=== PATIENT | female | born 2000 | race African-American/Black ===

== ENCOUNTER 2020-02-24 14:12 | Day surgery (SDC) | payer BC ==
[~2020-02-24 14:12] MED LIST: Acetaminophen 500 MG TAB PO PRN; INFLIXIMAB IVPB SCH; SODIUM CHLORIDE 0.9% IVPB SCH; diphenhydrAMINE 25 MG CAP PO PRN
[2020-02-24] MEDS ORDERED: Sodium Chloride 0.9% 20 ML ONE (14:31)
== END 2020-02-24 17:12 | disposition home or self-care (01) ==
LOC: ONC/OP 14:12
PROVIDERS: ATTEND Internal Medicine Gastroenterology
DX: K50.90 Crohn's disease, unspecified, without complications (principal); Z88.1 Allergy status to other antibiotic agents
CPT/HCPCS: 96413; 96415; J1745; J7050; Q0163

== ENCOUNTER 2020-04-06 14:09 | Day surgery (SDC) | payer BC ==
[~2020-04-06 14:09] MED LIST changes: +Acetaminophen 500 MG TAB PO SCH; +Sodium Chloride 0.9% 1,000 ML IV SCH; -diphenhydrAMINE 25 MG CAP PO PRN; +diphenhydrAMINE 25 MG CAP PO SCH
[2020-04-06] MEDS ORDERED: Sodium Chloride 0.9% 20 ML ONE (14:16)
[2020-04-06 14:36] VITALS: BP 115/63; TEMP 98.5
== END 2020-04-06 16:42 | disposition home or self-care (01) ==
LOC: ONC/OP 14:09
PROVIDERS: ATTEND Internal Medicine Gastroenterology
DX: K50.90 Crohn's disease, unspecified, without complications (principal); Z88.0 Allergy status to penicillin
CPT/HCPCS: 96413; 96415; J1745; J7050; Q0163

== ENCOUNTER 2020-05-18 12:08 | Day surgery (SDC) | payer BC ==
[2020-05-18] MEDS ORDERED: Sodium Chloride 0.9% 20 ML ONE (12:38)
== END 2020-05-18 16:16 | disposition home or self-care (01) ==
LOC: ONC/OP 12:08
PROVIDERS: ATTEND Internal Medicine Gastroenterology
DX: K50.90 Crohn's disease, unspecified, without complications (principal); Z88.0 Allergy status to penicillin
CPT/HCPCS: 96413; 96415; J1745; J7050; Q0163

== ENCOUNTER 2020-08-16 13:07 | Day surgery (SDC) | payer BC ==
[2020-08-16] MEDS ORDERED: Sodium Chloride 0.9% 20 ML ONE (13:22)
[2020-08-16 15:10] VITALS: BP 105/55; TEMP 98
== END 2020-08-16 16:37 | disposition home or self-care (01) ==
LOC: ONC/OP 13:07
PROVIDERS: ATTEND Internal Medicine Gastroenterology
DX: K50.90 Crohn's disease, unspecified, without complications (principal); Z88.0 Allergy status to penicillin
CPT/HCPCS: 96413; 96415; J1745; J7050; Q0163

== ENCOUNTER 2020-10-04 13:22 | Day surgery (SDC) | payer BC ==
[2020-10-04] MEDS ORDERED: Sodium Chloride 0.9% 20 ML ONE (13:36)
[2020-10-04 14:13] VITALS: BP 116/57; TEMP 98.1
== END 2020-10-04 16:36 | disposition home or self-care (01) ==
LOC: ONC/OP 13:22
PROVIDERS: ATTEND Internal Medicine Gastroenterology
DX: K50.90 Crohn's disease, unspecified, without complications (principal); Z88.0 Allergy status to penicillin
CPT/HCPCS: 96413; 96415; J1745; J7050; Q0163

== ENCOUNTER 2020-11-17 13:00 | Day surgery (SDC) | payer BC ==
[~2020-11-17 13:00] MED LIST changes: +INFLIXIMAB DYYB IVPB SCH
[2020-11-17] MEDS ORDERED: Sodium Chloride 0.9% 20 ML ONE (13:09)
== END 2020-11-17 16:54 | disposition home or self-care (01) ==
LOC: ONC/OP 13:00
PROVIDERS: ATTEND Internal Medicine Gastroenterology
DX: K50.90 Crohn's disease, unspecified, without complications (principal); Z88.0 Allergy status to penicillin
CPT/HCPCS: 96413; 96415; J1745; J7050; Q0163

== ENCOUNTER 2020-12-29 13:16 | Day surgery (SDC) | payer BC ==
[~2020-12-29 13:16] MED LIST changes: -INFLIXIMAB DYYB IVPB SCH
[2020-12-29 15:43] VITALS: BP 132/78; TEMP 99.2
== END 2020-12-29 17:21 | disposition home or self-care (01) ==
LOC: ONC/OP 13:16
PROVIDERS: ATTEND Internal Medicine Gastroenterology
DX: K50.90 Crohn's disease, unspecified, without complications (principal); Z88.0 Allergy status to penicillin
CPT/HCPCS: 96413; 96415; J1745; J7050; Q0163

== ENCOUNTER 2021-02-09 13:09 | Day surgery (SDC) | payer BC ==
[~2021-02-09 13:09] MED LIST changes: -Acetaminophen 500 MG TAB PO SCH; -Sodium Chloride 0.9% 1,000 ML IV SCH; +diphenhydrAMINE 25 MG CAP PO PRN; -diphenhydrAMINE 25 MG CAP PO SCH
[2021-02-09] MEDS ORDERED: INFLIXIMAB IVPB SCH (13:15)
[2021-02-09] MEDS ORDERED: SODIUM CHLORIDE 0.9% IVPB SCH (13:15)
[2021-02-09] MEDS ORDERED: Sodium Chloride 0.9% 20 ML ONE (13:17)
[2021-02-09 13:50] VITALS: BP 110/57; TEMP 97.6
== END 2021-02-09 16:12 | disposition home or self-care (01) ==
LOC: ONC/OP 13:09
PROVIDERS: ATTEND Internal Medicine Gastroenterology
DX: K50.90 Crohn's disease, unspecified, without complications (principal); Z88.0 Allergy status to penicillin
CPT/HCPCS: 96413; 96415; J1745; J7050; Q0163

== ENCOUNTER 2021-03-23 13:17 | Day surgery (SDC) | payer BC ==
[~2021-03-23 13:17] MED LIST changes: +Acetaminophen 500 MG TAB PO SCH; +Sodium Chloride 0.9% 1,000 ML IV SCH; -diphenhydrAMINE 25 MG CAP PO PRN; +diphenhydrAMINE 25 MG CAP PO SCH
[2021-03-23] MEDS ORDERED: Sodium Chloride 0.9% 20 ML ONE (13:43)
[2021-03-23 15:05] VITALS: BP 116/61
== END 2021-03-23 16:18 | disposition home or self-care (01) ==
LOC: ONC/OP 13:17
PROVIDERS: ATTEND Internal Medicine Gastroenterology
DX: K50.90 Crohn's disease, unspecified, without complications (principal); Z88.0 Allergy status to penicillin
CPT/HCPCS: 96413; 96415; J1745; J7050

== ENCOUNTER → 2021-05-04 | Day surgery (SDC) | payer BC ==
[~2021-05-04] MED LIST changes: +Sodium Chloride 0.9% 20 ML ONE
[2021-05-04 14:28] VITALS: BP 101/60; TEMP 97.8
== END ==
LOC: ONC/OP 13:26
PROVIDERS: ATTEND Internal Medicine Gastroenterology
DX: K50.90 Crohn's disease, unspecified, without complications (principal); Z88.0 Allergy status to penicillin
CPT/HCPCS: 96413; 96415; J1745; J7050; Q0163

== ENCOUNTER 2021-06-27 14:02 | Day surgery (SDC) | payer BC ==
[2021-06-27 14:13] VITALS: BP 104/58; TEMP 98.2
== END 2021-06-27 15:52 | disposition home or self-care (01) ==
LOC: ONC/OP 14:02
PROVIDERS: ATTEND Internal Medicine Gastroenterology
DX: K50.90 Crohn's disease, unspecified, without complications (principal); Z88.0 Allergy status to penicillin
CPT/HCPCS: 96413; 96415; J1745; J7050

== ENCOUNTER 2022-06-16 11:11 | Day surgery (SDC) | payer SELFPAY ==
[2022-06-16] MEDS ORDERED: Acetaminophen 500 MG TAB PO SCH (11:30)
[2022-06-16] MEDS ORDERED: diphenhydrAMINE 25 MG CAP PO SCH (11:30)
[2022-06-16] MEDS ORDERED: SODIUM CHLORIDE 0.9% IVPB SCH (11:30)
[2022-06-16] MEDS ORDERED: INFLIXIMAB IVPB SCH (11:30)
[2022-06-16] MEDS ORDERED: Acetaminophen 500 MG TAB ONE (12:40)
[2022-06-16] MEDS ORDERED: diphenhydrAMINE 25 MG CAP ONE (12:40)
[2022-06-16 13:57] VITALS: BP 91/55; TEMP 97.6
== END 2022-06-16 15:50 | disposition home or self-care (01) ==
LOC: ONC/OP 11:11
PROVIDERS: ATTEND Internal Medicine Gastroenterology
DX: K50.90 Crohn's disease, unspecified, without complications (principal); Z88.0 Allergy status to penicillin
CPT/HCPCS: 96413; 96415

== ENCOUNTER 2022-07-03 11:11 | Day surgery (SDC) | payer SELFPAY ==
[~2022-07-03 11:11] MED LIST changes: -Acetaminophen 500 MG TAB PO PRN; -Sodium Chloride 0.9% 1,000 ML IV SCH; -Sodium Chloride 0.9% 20 ML ONE
[2022-07-03] MEDS ORDERED: INFLIXIMAB IVPB SCH (11:30)
[2022-07-03] MEDS ORDERED: SODIUM CHLORIDE 0.9% IVPB SCH (11:30)
[2022-07-03 11:58] VITALS: BP 107/59; TEMP 98.3
== END 2022-07-03 16:45 | disposition home or self-care (01) ==
LOC: ONC/OP 11:11
PROVIDERS: ATTEND Internal Medicine Gastroenterology
DX: K50.90 Crohn's disease, unspecified, without complications (principal); Z88.0 Allergy status to penicillin
CPT/HCPCS: 96413; 96415

== ENCOUNTER 2022-08-14 10:03 | Day surgery (SDC) | payer SELFPAY ==
[2022-08-14] MEDS ORDERED: INFLIXIMAB IVPB SCH (10:45)
[2022-08-14] MEDS ORDERED: SODIUM CHLORIDE 0.9% IVPB SCH (10:45)
[2022-08-14] MEDS ORDERED: diphenhydrAMINE 25 MG CAP ONE (11:47)
[2022-08-14] MEDS ORDERED: Acetaminophen 500 MG TAB ONE (11:47)
[2022-08-14 12:00] VITALS: BP 110/56; TEMP 97.9
== END 2022-08-14 16:46 | disposition home or self-care (01) ==
LOC: ONC/OP 10:03
PROVIDERS: ATTEND Internal Medicine Gastroenterology
DX: K50.90 Crohn's disease, unspecified, without complications (principal); Z88.0 Allergy status to penicillin
CPT/HCPCS: 96413; 96415

== ENCOUNTER 2022-09-27 10:21 | Day surgery (SDC) | payer SELFPAY ==
[2022-09-27] MEDS ORDERED: diphenhydrAMINE 25 MG CAP ONE (10:28)
[2022-09-27] MEDS ORDERED: Acetaminophen 500 MG TAB ONE (10:28)
[2022-09-27 16:36] VITALS: BP 108/70; TEMP 98.4
== END 2022-09-27 13:00 | disposition home or self-care (01) ==
LOC: ONC/OP 10:21
PROVIDERS: ATTEND Internal Medicine Gastroenterology
DX: K50.90 Crohn's disease, unspecified, without complications (principal); Z88.0 Allergy status to penicillin
CPT/HCPCS: 96413; 96415

== ENCOUNTER 2022-11-08 10:14 | Day surgery (SDC) | payer SELFPAY ==
[~2022-11-08 10:14] MED LIST changes: +Sodium Chloride 0.9% 500 ML IV PRN; +diphenhydrAMINE 50 MG/ML VIAL IVP PRN
[2022-11-08] MEDS ORDERED: INFLIXIMAB IVPB SCH (10:30)
[2022-11-08] MEDS ORDERED: SODIUM CHLORIDE 0.9% IVPB SCH (10:30)
[2022-11-08 10:48] VITALS: BP 113/59; TEMP 98.6
[2022-11-08] MEDS ORDERED: Acetaminophen 500 MG TAB ONE (11:20)
[2022-11-08] MEDS ORDERED: diphenhydrAMINE 25 MG CAP ONE (11:20)
== END 2022-11-08 13:57 | disposition home or self-care (01) ==
LOC: ONC/OP 10:14
PROVIDERS: ATTEND Internal Medicine Gastroenterology
DX: K50.90 Crohn's disease, unspecified, without complications (principal); Z88.0 Allergy status to penicillin
CPT/HCPCS: 96413; 96415

== ENCOUNTER 2023-04-06 10:20 | Day surgery (SDC) | payer SELFPAY ==
[2023-04-06] MEDS ORDERED: SODIUM CHLORIDE 0.9% IVPB SCH (10:45)
[2023-04-06] MEDS ORDERED: INFLIXIMAB IVPB SCH (10:45)
[2023-04-06] MEDS ORDERED: Acetaminophen 500 MG TAB ONE (12:06)
[2023-04-06] MEDS ORDERED: diphenhydrAMINE 25 MG CAP ONE (12:07)
[2023-04-06 12:26] VITALS: BP 112/68; TEMP 98.5
== END 2023-04-06 14:20 | disposition home or self-care (01) ==
LOC: ONC/OP 10:20
PROVIDERS: ATTEND Internal Medicine Gastroenterology
DX: K50.90 Crohn's disease, unspecified, without complications (principal); Z88.1 Allergy status to other antibiotic agents
CPT/HCPCS: 96413; 96415; J1745; J7050

== ENCOUNTER 2023-06-29 10:22 | Day surgery (SDC) | payer SELFPAY ==
[~2023-06-29 10:22] MED LIST changes: -Sodium Chloride 0.9% 500 ML IV PRN; -diphenhydrAMINE 50 MG/ML VIAL IVP PRN
[2023-06-29 11:03] VITALS: BP 122/62; TEMP 98.6
[2023-06-29] MEDS ORDERED: Acetaminophen 500 MG TAB ONE (11:56)
[2023-06-29] MEDS ORDERED: diphenhydrAMINE 25 MG CAP ONE (11:56)
[2023-06-29] MEDS ORDERED: FLU VACC QS2023-24(6MOS UP)/PF 60 MCG/0.5 ML SYRINGE IM ONE (18:00)
== END 2023-06-29 14:14 | disposition home or self-care (01) ==
LOC: ONC/OP 10:22
PROVIDERS: ATTEND Internal Medicine Gastroenterology
DX: K50.90 Crohn's disease, unspecified, without complications (principal); Z88.1 Allergy status to other antibiotic agents
CPT/HCPCS: 96413; 96415; J1745; J7050

== ENCOUNTER 2023-08-21 11:12 | Day surgery (SDC) | payer OTHER, SELFPAY ==
[2023-08-21] MEDS ORDERED: Acetaminophen 500 MG TAB ONE (11:35)
[2023-08-21] MEDS ORDERED: diphenhydrAMINE 25 MG CAP ONE (11:35)
[2023-08-21 12:01] VITALS: BP 118/58; TEMP 98.4
== END 2023-08-21 14:09 | disposition home or self-care (01) ==
LOC: ONC/OP 11:12
PROVIDERS: ATTEND Internal Medicine Gastroenterology
DX: K50.90 Crohn's disease, unspecified, without complications (principal); Z88.1 Allergy status to other antibiotic agents
CPT/HCPCS: 96413; 96415; J1745; J7050

== ENCOUNTER 2023-10-09 11:28 | Day surgery (SDC) | payer OTHER ==
[2023-10-09] MEDS ORDERED: diphenhydrAMINE 25 MG CAP ONE (11:57)
[2023-10-09] MEDS ORDERED: Acetaminophen 500 MG TAB ONE ×2 (11:57→11:59)
[2023-10-09] MEDS: diphenhydrAMINE 25 MG CAP PO SCH (11:58)
[2023-10-09] MEDS: Acetaminophen 500 MG TAB PO SCH (12:00)
[2023-10-09] MEDS: INFLIXIMAB IVPB SCH (12:01)
[2023-10-09] MEDS: SODIUM CHLORIDE 0.9% IVPB SCH (12:01)
[2023-10-09 12:44] VITALS: BP 112/73; TEMP 98.3
== END 2023-10-09 14:28 | disposition home or self-care (01) ==
LOC: ONC/OP 11:28
PROVIDERS: ATTEND Internal Medicine Gastroenterology
DX: K50.90 Crohn's disease, unspecified, without complications (principal); Z88.1 Allergy status to other antibiotic agents
CPT/HCPCS: 96413; 96415; J1745; J7050

== ENCOUNTER 2023-12-19 11:04 | Day surgery (SDC) | payer OTHER ==
[~2023-12-19 11:04] MED LIST changes: -Acetaminophen 500 MG TAB PO SCH; -diphenhydrAMINE 25 MG CAP PO SCH
[2023-12-19 12:02] VITALS: BP 117/62; TEMP 98.7
[2023-12-19] MEDS: INFLIXIMAB IVPB SCH (12:57)
[2023-12-19] MEDS: SODIUM CHLORIDE 0.9% IVPB SCH (12:57)
[2023-12-19] MEDS ORDERED: Acetaminophen 500 MG TAB ONE (13:02)
[2023-12-19] MEDS ORDERED: diphenhydrAMINE 25 MG CAP ONE (13:02)
[2023-12-19] MEDS: Acetaminophen 500 MG TAB PO SCH (13:03)
[2023-12-19] MEDS: diphenhydrAMINE 25 MG CAP PO SCH (13:03)
== END 2023-12-19 15:27 | disposition home or self-care (01) ==
LOC: ONC/OP 11:04
PROVIDERS: ATTEND Internal Medicine Gastroenterology
DX: K50.90 Crohn's disease, unspecified, without complications (principal); Z88.1 Allergy status to other antibiotic agents
CPT/HCPCS: 96413; 96415; J1745; J7050

== ENCOUNTER 2024-01-30 11:19 | Day surgery (SDC) | payer OTHER ==
[2024-01-30] MEDS ORDERED: diphenhydrAMINE 25 MG CAP ONE (11:31)
[2024-01-30] MEDS ORDERED: Acetaminophen 500 MG TAB ONE ×2 (11:31→11:34)
[2024-01-30] MEDS: Acetaminophen 500 MG TAB PO SCH (11:35)
[2024-01-30] MEDS: diphenhydrAMINE 25 MG CAP PO SCH (11:35)
[2024-01-30 12:12] VITALS: BP 102/56; TEMP 98
[2024-01-30] MEDS: SODIUM CHLORIDE 0.9% IVPB SCH (12:14)
[2024-01-30] MEDS: INFLIXIMAB IVPB SCH (12:14)
== END 2024-01-30 15:10 | disposition home or self-care (01) ==
LOC: ONC/OP 11:19
PROVIDERS: ATTEND Internal Medicine Gastroenterology
DX: K50.90 Crohn's disease, unspecified, without complications (principal); Z88.1 Allergy status to other antibiotic agents
CPT/HCPCS: 96413; 96415; J1745; J7050

== ENCOUNTER 2024-03-18 11:32 | Day surgery (SDC) | payer OTHER, SELFPAY ==
[~2024-03-18 11:32] MED LIST changes: +Acetaminophen 500 MG TAB PO SCH; +diphenhydrAMINE 25 MG CAP PO SCH
[2024-03-18] MEDS ORDERED: Acetaminophen 500 MG TAB ONE (11:59)
[2024-03-18] MEDS ORDERED: diphenhydrAMINE 25 MG CAP ONE (11:59)
[2024-03-18] MEDS: diphenhydrAMINE 25 MG CAP PO SCH (12:00)
[2024-03-18] MEDS: Acetaminophen 500 MG TAB PO SCH (12:00)
[2024-03-18 12:05] VITALS: BP 116/57; TEMP 98
[2024-03-18] MEDS: SODIUM CHLORIDE 0.9% IVPB SCH (12:40)
[2024-03-18] MEDS: INFLIXIMAB IVPB SCH (12:40)
== END 2024-03-18 15:28 | disposition home or self-care (01) ==
LOC: ONC/OP 11:32
PROVIDERS: ATTEND Internal Medicine Gastroenterology
DX: K50.90 Crohn's disease, unspecified, without complications (principal); Z88.1 Allergy status to other antibiotic agents
CPT/HCPCS: 96413; 96415; J1745; J7050

== ENCOUNTER 2024-05-02 11:15 | Day surgery (SDC) | payer OTHER ==
[~2024-05-02 11:15] MED LIST changes: -Acetaminophen 500 MG TAB PO SCH; -diphenhydrAMINE 25 MG CAP PO SCH
[2024-05-02] MEDS ORDERED: Acetaminophen 500 MG TAB ONE (11:40)
[2024-05-02] MEDS ORDERED: diphenhydrAMINE 25 MG CAP ONE (11:40)
[2024-05-02] MEDS: Acetaminophen 500 MG TAB PO SCH (11:43)
[2024-05-02] MEDS: diphenhydrAMINE 25 MG CAP PO SCH (11:43)
[2024-05-02 11:53] VITALS: BP 104/64; TEMP 98.3
[2024-05-02] MEDS: SODIUM CHLORIDE 0.9% IVPB SCH (12:15)
[2024-05-02] MEDS: INFLIXIMAB IVPB SCH (12:15)
== END 2024-05-02 14:43 | disposition home or self-care (01) ==
LOC: ONC/OP 11:15
PROVIDERS: ATTEND Internal Medicine Gastroenterology
DX: K50.90 Crohn's disease, unspecified, without complications (principal); Z88.1 Allergy status to other antibiotic agents; Z88.0 Allergy status to penicillin
CPT/HCPCS: 96413; 96415; J1745; J7050